=== PATIENT | female | born 1960 | race Caucasian/White ===

== ENCOUNTER 2016-09-12 13:54 | Day surgery (SDC) | payer OTHER ==
[~2016-09-12] VITALS: Ht 160 cm; Wt 66.1 kg
[~2016-09-12 13:54] MED LIST: CELEBREX PO; CLON-412; OMEP20TA42
[2016-09-12 14:39] VITALS: Ht 160 cm; Wt 66.1 kg
[2016-09-12] MEDS ORDERED: PROTONIX (14:43)
[2016-09-12] MEDS ORDERED: IBUPROFEN (14:43)
[2016-09-12] MEDS ORDERED: LIDOCAINE 4% SOLUTION 50 ML BTL ONE (14:47)
[2016-09-12 14:50] VITALS: BP 144/84; PULSE 74; RESP 22
[2016-09-12] MEDS ORDERED: MIDAZOLAM 1 MG/ML 2 ML INJ ONE ×2 (15:14)
[2016-09-12] MEDS ORDERED: FENTAnyl 50 MCG/ML VIAL ONE (15:14)
[2016-09-12 15:32] VITALS: BP 116/78; RESP 20
--- NOTE | 2016-09-13 05:56 | GILP ---
DATE OF PROCEDURE: 09/12/2016 PREOPERATIVE DIAGNOSIS: Gastroesophageal reflux. PROCEDURE DONE: Esophagogastroduodenoscopy and biopsy. POSTOPERATIVE DIAGNOSES: Hiatus hernia. Very minimal esophagitis. No ulcer, no erosions seen. In the stomach, there was a fundic gland. Otherwise unremarkable, but biopsy random and fundic glands were separately done. DESCRIPTION OF PROCEDURE: The patient was put in left lateral decubitus after obtaining informed co nsent. Posterior pharynx anesthetized with 4% Xylocaine, 3 mg IV Versed, 75 mcg of fentanyl given, monitored oximetry, EKG, blood pressure. Very carefully, I advanced the Olympus video upper endoscope in the esophagus, stomach, and duodenum . Examination demonstrated mild esophagitis but no erosions, no other abnormalities at 39 cm to 38 cm. A sliding hiatus hernia, about 2 to 3 cm, noted. In the stomach, there were fundic glands. Th lito were photographed and later biopsied. Random biopsy also done in the stomach, although stomach itself had mild gastritis in the antrum. Pyloric channel was easily entered. Duodenal bulb and fir st and second part of the duodenum normal. Upon removal of scope, the patient had no complication. Plan will be to wait for biopsy report. Continue PPI. The patient will be followed as outpatient. Dictated By: CITLALY MASCORRO Conf#: [id number] DID#: [id number] CC: EDSON FLORES MD;*End*
== END 2016-09-12 17:02 | disposition home or self-care (01) ==
LOC: GIL 13:54
PROVIDERS: ATTEND Internal Medicine
DX: K44.9 Diaphragmatic hernia without obstruction or gangrene (principal); K20.8 Other esophagitis
CPT/HCPCS: 43239; 88305; J2250; J3010; Z7610

== ENCOUNTER 2017-04-17 13:34 | Day surgery (SDC) | payer OTHER ==
[~2017-04-17] VITALS: Ht 157.5 cm; Wt 64.9 kg
[~2017-04-17 13:34] MED LIST changes: -CELEBREX PO; +IBUPROFEN; -OMEP20TA42; +PROTONIX
[2017-04-17] MEDS ORDERED: NEXIUM (14:09)
[2017-04-17 14:10] VITALS: Ht 157.5 cm; Wt 64.9 kg
[2017-04-17 14:14] VITALS: BP 121/78; PULSE 58; RESP 18
[2017-04-17] MEDS ORDERED: LIDOCAINE 4% SOLUTION 50 ML BTL ONE (14:19)
--- NOTE | 2017-04-17 14:48 | OPPN ---
Date/Time of Note Date/Time of Note DATE: 04/17/17 TIME: 14:46 Operative Report Preoperative Diagnosis Abdominal pain with gastroesophageal reflux medical failure Postoperative Diagnosis Small hiatus hernia to fundic glands mild gastritis Operation/Procedure Performed EGD biopsy Surgeon see signature line clerical assistant None Anesthesia: moderate sedation (Versed 3 mg fentanyl 75 mcg total moderate sedation time 15 minutes) Estimated blood loss: none Transfusion Required none Specimen Gastric fundic glands and random gastric biopsy Grafts/Implants none Complications none CITLALY SALGADO MD Apr 17, 2017 14:48
[2017-04-17 15:15] VITALS: BP 121/74; PULSE 56; RESP 18
[2017-04-17] MEDS ORDERED: FENTAnyl 50 MCG/ML VIAL ONE (15:25)
[2017-04-17] MEDS ORDERED: MIDAZOLAM 1 MG/ML 2 ML INJ ONE ×2 (15:25)
--- NOTE | 2017-04-18 07:09 | GILP ---
DATE OF PROCEDURE: PREOPERATIVE DIAGNOSIS: Gastroesophageal reflux, abdominal pain in spite of therapy with Nexium. T he patient was brought for upper endoscopy. PROCEDURE DONE: Esophagogastroduodenoscopy and biopsy of the gastric fundic glands and also random gastric biopsy. DESCRIPTION OF PROCEDURE: After obtaining informed consent, posterior pharynx was anesthetized with 4% Xylocaine and 3 mg IV Versed and 75 mcg of fentanyl IV given a total moderate sedation time 15 m inutes. I advanced an Olympus video upper endoscope in the esophagus, stomach and duodenum, essenti ally normal esophagus except for small hiatus hernia, no esophagitis as such seen. GE junction and transitional Z line were normal looking. In the stomach, there was some fundic glands with nodulari ty in the body and fundus, photography done, later biopsied. Random gastric biopsy also done. Rest of the stomach including antrum normal. Pyloric channel easily traversed and duodenal bulb first a nd second part are normal. Upon removal of scope, the patient had no complication. PLAN: Will be to await for biopsy report. Continue Nexium as before. Follow up as outpatient. Dictated By: CITLALY MASCORRO Conf#: [id number] DID#: [id number]
== END 2017-04-17 16:04 | disposition home or self-care (01) ==
LOC: GIL 13:34
PROVIDERS: ATTEND Internal Medicine
DX: K21.9 Gastro-esophageal reflux disease without esophagitis (principal); K44.9 Diaphragmatic hernia without obstruction or gangrene; K29.70 Gastritis, unspecified, without bleeding; I10 Essential (primary) hypertension
CPT/HCPCS: 88305; 88312; J2250; J3010